=== PATIENT | female | born 1960 | race Caucasian/White ===

== ENCOUNTER 2018-02-05 18:11 | Emergency (ER) | payer BC, OTHER ==
[~2018-02-05] VITALS: Ht 167.6 cm; Wt 86.2 kg
[2018-02-05] MEDS ORDERED: Zithromax250 MG PO (19:50)
[2018-02-05] MEDS ORDERED: METPRE4DP PO (19:50)
[2018-02-05] MEDS ORDERED: ALBU90OI INH (19:50)
== END 2018-02-05 20:15 | disposition home or self-care (01) ==
LOC: ER 18:11
DX: R05 Cough (principal); Z88.0 Allergy status to penicillin; Z79.2 Long term (current) use of antibiotics; Z79.899 Other long term (current) drug therapy
CPT/HCPCS: 71046; 94640; 99283